=== PATIENT | female | born 1995 | race African-American/Black ===

== ENCOUNTER 2017-12-17 19:39 | Emergency (ER) | payer MEDICAID, OTHER ==
[~2017-12-17] VITALS: Ht 165.1 cm; Wt 100.0 kg
[2017-12-17 21:19] LABS: CLARITY URINE CLOUDY (CLEAR); COLOR URINE YELLOW (YELLOW); KETONES URINE NEGATIVE (NEGATIVE); LEUKOCYTE ESTERASE URINE 1+ (NEGATIVE); NITRITE URINE NEGATIVE (NEGATIVE); OCCULT BLOOD URINE TRACE (NEGATIVE); PH URINE 5.5 (4.5-8.0); PROTEIN URINE NEGATIVE (NEGATIVE); UROBILINOGEN URINE 0.2 E.U./dL (0.2-1.0)
[2017-12-18] MEDS ORDERED: ACETAMINOPHEN 325MG TABLET PO STA (00:20)
[2017-12-18] MEDS ORDERED: CEFTRIAXONE 1 G PREMIX 50 ML IV ONE (00:30)
[2017-12-18] MEDS ORDERED: AZITHROMYCIN 500 MG in DEXT 5% WATER 250 ML IV ONE (00:30)
[2017-12-18] MEDS ORDERED: SODIUM CHLORIDE 0.9% 1000ML BAG (SEPSIS BOLUS) IV ONE (00:30)
[2017-12-18 02:09] LABS: BASOPHILS % 0.3 % (0.0-2.0); CHLORIDE 105 mEq/L (98-107); EOSINOPHILS % 3.2 % (0.0-5.0); HEMATOCRIT. 38.1 % (36.0-48.0); LYMPHOCYTES % 32.6 % (20.0-50.0); MEAN CORPUSCULAR HEMOGLOBIN 29.9 pg (28.0-32.0); MEAN CORPUSCULAR VOLUME 87.8 fL (81.0-99.0); MEAN PLATELET VOLUME 7.8 fl (7.4-10.4); MONOCYTES % 11.1 % (2.0-8.0); NEUTROPHILS % 52.8 % (40.0-76.0); PLATELET 225 x1000/uL (130-400); RED BLOOD CELL COUNT 4.34 mill/uL (4.2-5.4); RED CELL DISTRIBUTION WIDTH 13.2 % (11.6-14.6)
[2017-12-18 02:11] LABS: PROTHROMBIN TIME 10.7 sec (9.4-11.6)
[2017-12-18 02:13] LABS: ETHANOL BLOOD < 10 mg/dL
[2017-12-18] MEDS ORDERED: ONDANSETRON HCL 4MG/2ML VIAL IV STA (03:40)
[2017-12-18 05:05] VITALS: BP 126/82
[2017-12-18 13:08] LABS: *AMPHETAMINES SCREEN URINE NEGATIVE (NEGATIVE); *BARBITURATES SCREEN URINE NEGATIVE (NEGATIVE); *BENZODIAZEPINES SCREEN URINE NEGATIVE (NEGATIVE); *COCAINE SCREEN URINE NEGATIVE (NEGATIVE); METHADONE URINE SCREEN NEGATIVE (NEGATIVE)
[2017-12-18 13:09] LABS: CANNABINOID URINE SCREEN NEGATIVE (NEGATIVE); OPIATES URINE SCREEN NEGATIVE (NEGATIVE); PHENCYCLIDINE URINE SCREEN NEGATIVE (NEGATIVE)
== END 2017-12-18 06:54 | disposition home or self-care (01) ==
LOC: ER 19:39
DX: R42 Dizziness and giddiness (principal); N39.0 Urinary tract infection, site not specified; R11.2 Nausea with vomiting, unspecified; R51 Headache
CPT/HCPCS: 36415; 70450; 71045; 80053; 80305; 81003; 83605; 83690; 83880; 84484; 85025; 85610; 87040; 87086; 93005; 96361; 96365; 96367; 96375; 99285; G0482; J0456; J0696; J2405; J7030; Z7610; J7060

== ENCOUNTER 2017-12-19 08:22 | Emergency (ER) | payer MEDICAID ==
[~2017-12-19] VITALS: Ht 162.6 cm; Wt 100.0 kg
[2017-12-19 09:35] LABS: CLARITY URINE CLEAR (CLEAR); COLOR URINE YELLOW (YELLOW); KETONES URINE NEGATIVE (NEGATIVE); LEUKOCYTE ESTERASE URINE NEGATIVE (NEGATIVE); NITRITE URINE NEGATIVE (NEGATIVE); OCCULT BLOOD URINE NEGATIVE (NEGATIVE); PH URINE 6.5 (4.5-8.0); PROTEIN URINE NEGATIVE (NEGATIVE); SPECIFIC GRAVITY URINE 1.016 (1.005-1.030); UROBILINOGEN URINE 0.2 E.U./dL (0.2-1.0)
[2017-12-19] MEDS ORDERED: IPRATROPIUM BROMIDE (0.02%) 0.5MG/2.5ML NEB HHN STA (11:08)
[2017-12-19] MEDS ORDERED: ONDANSETRON HCL 4MG/2ML VIAL IV STA (11:08)
[2017-12-19] MEDS ORDERED: IBUPROFEN 600MG TABLET PO STA (11:08)
[2017-12-19] MEDS ORDERED: ALBUTEROL (0.083%) 2.5MG/3ML NEB HHN STA (11:08)
[2017-12-19] MEDS ORDERED: METHYLPREDNISOLONE SOD SUCC 125 MG/2 ML VIAL IV STA (11:08)
[2017-12-19 12:08] LABS: BASOPHILS % 0.4 % (0.0-2.0); EOSINOPHILS % 4.6 % (0.0-5.0); HEMATOCRIT. 38.2 % (36.0-48.0); HEMOGLOBIN. 12.8 g/dL (12.0-16.0); LYMPHOCYTES % 33.9 % (20.0-50.0); MEAN CORPUSCULAR HEMOGLOBIN 29.3 pg (28.0-32.0); MEAN CORPUSCULAR VOLUME 87.3 fL (81.0-99.0); MEAN PLATELET VOLUME 7.7 fl (7.4-10.4); MONOCYTES % 10.9 % (2.0-8.0); NEUTROPHILS % 50.2 % (40.0-76.0); PLATELET 213 x1000/uL (130-400); RED BLOOD CELL COUNT 4.38 mill/uL (4.2-5.4); RED CELL DISTRIBUTION WIDTH 13.3 % (11.6-14.6)
[2017-12-19 12:14] LABS: CHLORIDE 106 mEq/L (98-107)
[2017-12-19 15:57] VITALS: BP 130/65
== END 2017-12-19 16:01 | disposition home or self-care (01) ==
LOC: ER 08:41
DX: J45.909 Unspecified asthma, uncomplicated (principal); N39.0 Urinary tract infection, site not specified; Z87.820 Personal history of traumatic brain injury; Z98.890 Other specified postprocedural states
CPT/HCPCS: 36415; 80048; 81003; 81025; 85025; 87086; 94644; 96374; 96375; 99285; J2405; J2930; J7611; Z7610

== ENCOUNTER 2018-01-01 18:43 | Emergency (ER) | payer MEDICAID ==
[~2018-01-01] VITALS: Ht 167.6 cm; Wt 102.0 kg
[2018-01-01 18:58] VITALS: BP 134/63
== END 2018-01-02 | disposition left against medical advice (07) ==
LOC: ER 18:43
DX: Z53.21 Procedure and treatment not carried out due to patient leaving prior to being seen by health care provider (principal)

== ENCOUNTER 2018-01-23 19:39 | Emergency (ER) | payer MEDICAID ==
[~2018-01-23] VITALS: Ht 167.6 cm; Wt 102.0 kg
[2018-01-23] MEDS ORDERED: SODIUM CHLORIDE 0.9% 1,000 ML IV ONE (22:25)
[2018-01-23] MEDS ORDERED: ACETAMINOPHEN 325MG TABLET PO PRN (22:30)
[2018-01-24 00:23] LABS: BASOPHILS % 0.4 % (0.0-2.0); HEMATOCRIT. 33.3 % (36.0-48.0); HEMOGLOBIN. 11.2 g/dL (12.0-16.0); LYMPHOCYTES % 26.7 % (20.0-50.0); MEAN CORPUSCULAR HEMOGLOBIN 29.6 pg (28.0-32.0); MEAN CORPUSCULAR VOLUME 87.8 fL (81.0-99.0); MEAN PLATELET VOLUME 7.9 fl (7.4-10.4); MONOCYTES % 6.8 % (2.0-8.0); NEUTROPHILS % 62.1 % (40.0-76.0); PLATELET 260 x1000/uL (130-400); RED BLOOD CELL COUNT 3.79 mill/uL (4.2-5.4)
[2018-01-24 00:34] LABS: CHLORIDE 105 mEq/L (98-107)
[2018-01-24 01:00] LABS: B-HCG QUANTITATIVE 138599 mIU/mL (<3)
[2018-01-24 01:16] LABS: CLARITY URINE CLEAR (CLEAR); COLOR URINE YELLOW (YELLOW); KETONES URINE NEGATIVE (NEGATIVE); LEUKOCYTE ESTERASE URINE 1+ (NEGATIVE); NITRITE URINE NEGATIVE (NEGATIVE); OCCULT BLOOD URINE NEGATIVE (NEGATIVE); PH URINE 5.5 (4.5-8.0); PROTEIN URINE NEGATIVE (NEGATIVE); SPECIFIC GRAVITY URINE 1.021 (1.005-1.030); UROBILINOGEN URINE 0.2 E.U./dL (0.2-1.0)
[2018-01-24 02:52] VITALS: BP 128/64
== END 2018-01-24 02:53 | disposition home or self-care (01) ==
LOC: ER 20:25
DX: O20.0 Threatened abortion (principal); J45.909 Unspecified asthma, uncomplicated; Z3A.01 Less than 8 weeks gestation of pregnancy
CPT/HCPCS: 36415; 76801; 76817; 80053; 81003; 81025; 84702; 85025; 86850; 86900; 86901; 99285; J7030; Z7610